=== PATIENT | female | born 1955 | race Caucasian/White ===

== ENCOUNTER 2023-02-09 11:46 | Emergency (ER) | payer MEDICARE, MEDICAID ==
[~2023-02-09] VITALS: Ht 160 cm; Wt 90.9 kg
[~2023-02-09 11:46] MED LIST: ADV50250 IH; ALBU8.5H4 IH; ASPI81TA52 PO; CELE-193 PO; ERGO500014 PO; FESO4TAB PO; FURO-150 PO; HYDR-4353 PO; INDLA60C; LANTUS SQ; LISI20TA28 PO; METF-900 PO; MORP-92 PO; MULT-1085 PO; POTA2TAB17 PO; POTA2TAB6 PO; PRAV80TA3 PO; PRED10TA PO; ROPI1TAB6 PO; SERT25TA PO
[2023-02-09 12:08] VITALS: BP 125/70
[2023-02-09] MEDS ORDERED: GUAI-647 PO ×2 (14:06→14:17)
[2023-02-09] MEDS ORDERED: AMOX-117 PO (14:33)
[2023-02-09] MEDS ORDERED: PRED20TA PO (14:33)
== END 2023-02-09 14:45 | disposition home or self-care (01) ==
LOC: ER 11:47
DX: R05.9 Cough, unspecified (principal); R09.81 Nasal congestion; I51.0 Cardiac septal defect, acquired; K21.9 Gastro-esophageal reflux disease without esophagitis; Z79.899 Other long term (current) drug therapy; Z79.82 Long term (current) use of aspirin; Z79.1 Long term (current) use of non-steroidal anti-inflammatories (NSAID); Z79.2 Long term (current) use of antibiotics
CPT/HCPCS: 99283

== ENCOUNTER 2024-02-17 17:18 | Emergency (ER) | payer MEDICARE, MEDICAID ==
[~2024-02-17] VITALS: Ht 160 cm; Wt 70.0 kg
[~2024-02-17 17:18] MED LIST changes: +ROPI1TAB47 PO; -ROPI1TAB6 PO
[2024-02-17] MEDS: ipratropium/albuterol 3ml nebule NEB ONE (18:33)
[2024-02-17 18:35] LABS: BASOPHILS # (AUTO) 0.1 X10'3 (0-0.2); BASOPHILS % (AUTO) 0.7 % (0-1); EOSINOPHILS # (AUTO) 0.3 X10'3 (0-0.9); HEMATOCRIT 34.5 % (35.0-45.0); HEMOGLOBIN 11.2 g/dl (12.0-16.0); LYMPHOCYTES # (AUTO) 1.1 X10'3 (1.1-4.8); LYMPHOCYTES % (AUTO) 12.4 % (21-51); MEAN CORPUSCULAR HEMOGLOBIN 25.1 PG (27.0-31.0); MEAN CORPUSCULAR HGB CONC 32.5 g/dL (33.0-36.5); MEAN PLATELET VOLUME 9.5 FL (7.4-10.4); MONOCYTES # (AUTO) 0.5 X10'3 (0-0.9); MONOCYTES % (AUTO) 5.5 % (2-12); NEUTROPHILS # (AUTO) 7.2 X10'3 (1.8-7.7); NEUTROPHILS % (AUTO) 78.4 % (42-75); PLATELET COUNT 190 X10'3 (140-440); RED BLOOD COUNT 4.48 X10'6 (4.20-5.60); RED CELL DISTRIBUTION WIDTH 16.2 % (11.5-14.5); WHITE BLOOD COUNT 9.2 X10'3 (4.5-11.0)
[2024-02-17 18:36] VITALS: PULSE 95; RESP 16; O2SAT 94
[2024-02-17 18:41] VITALS: PULSE 74; O2SAT 95
[2024-02-17] MEDS: methylPREDNISolone sod succ 125mg/2ml vial IV ONE (18:46)
[2024-02-17 18:47] LABS: ALBUMIN 3.2 G/DL (3.4-5.0); ANION GAP 8 (8-16); BLOOD UREA NITROGEN 13 MG/DL (7-18); CHLORIDE 94 MMOL/L (99-107); GLUCOSE 101 MG/DL (70-104); POTASSIUM 4.1 MMOL/L (3.5-5.1); PRO BRAIN NATRIURETIC PEPTIDE 283 PG/ML (0-125); SODIUM 130 MMOL/L (135-145); TOTAL CARBON DIOXIDE 27.7 MMOL/L (24-32); eCRCL 46 ML/MIN; eGFR 55 ML/MIN
[2024-02-17 18:52] LABS: MAGNESIUM 1.2 MG/DL (1.5-2.4)
[2024-02-17] MEDS ORDERED: PRED20TA PO (20:09)
[2024-02-17] MEDS ORDERED: CEPH250T PO (20:09)
[2024-02-17 20:31] VITALS: BP 140/73; PULSE 76; RESP 16; TEMP 98.5; O2SAT 92
== END 2024-02-17 20:25 | disposition home or self-care (01) ==
LOC: ER 17:19
DX: J40 Bronchitis, not specified as acute or chronic (principal); I50.9 Heart failure, unspecified; J44.9 Chronic obstructive pulmonary disease, unspecified; Z79.899 Other long term (current) drug therapy; Z79.82 Long term (current) use of aspirin; Z79.2 Long term (current) use of antibiotics
CPT/HCPCS: 36415; 71045; 80048; 83735; 83880; 84484; 85025; 93005; 94640; 96374; 99285; J2930; A4615

== ENCOUNTER 2024-03-16 19:25 | Emergency (ER) | payer MEDICARE, MEDICAID ==
[~2024-03-16] VITALS: Ht 162.6 cm; Wt 69.1 kg
[2024-03-16 19:43] LABS: BASOPHILS # (AUTO) 0.1 X10'3 (0-0.2); BASOPHILS % (AUTO) 0.8 % (0-1); EOSINOPHILS # (AUTO) 0.5 X10'3 (0-0.9); EOSINOPHILS % (AUTO) 4.9 % (0-6); HEMATOCRIT 36.9 % (35.0-45.0); LYMPHOCYTES # (AUTO) 1.3 X10'3 (1.1-4.8); LYMPHOCYTES % (AUTO) 13.9 % (21-51); MEAN CORPUSCULAR HEMOGLOBIN 25.3 PG (27.0-31.0); MEAN CORPUSCULAR HGB CONC 32.6 g/dL (33.0-36.5); MEAN CORPUSCULAR VOLUME 77.6 FL (78-98); MEAN PLATELET VOLUME 8.9 FL (7.4-10.4); MONOCYTES # (AUTO) 0.5 X10'3 (0-0.9); NEUTROPHILS # (AUTO) 7.3 X10'3 (1.8-7.7); NEUTROPHILS % (AUTO) 75.4 % (42-75); PLATELET COUNT 176 X10'3 (140-440); RED BLOOD COUNT 4.75 X10'6 (4.20-5.60); RED CELL DISTRIBUTION WIDTH 16.9 % (11.5-14.5); WHITE BLOOD COUNT 9.7 X10'3 (4.5-11.0)
[2024-03-16] MEDS ORDERED: DEC4T PO (19:44)
[2024-03-16] MEDS: methylPREDNISolone sod succ 125mg/2ml vial IV ONE (19:47)
[2024-03-16] MEDS: normal saline 1000ML IV soln IVB ONE (19:47)
[2024-03-16 19:58] VITALS: PULSE 78; RESP 16; O2SAT 97
[2024-03-16] MEDS: albuterol 2.5 MG/3 ML nebule NEB ONE (19:58)
[2024-03-16 20:00] LABS: ALBUMIN 3.4 G/DL (3.4-5.0); ANION GAP 9 (8-16); BLOOD UREA NITROGEN 10 MG/DL (7-18); BUN/CREATININE RATIO 9.5 (10.0-20.0); CALCIUM 8.9 MG/DL (8.5-10.1); CHLORIDE 97 MMOL/L (99-107); CREATININE 1.05 MG/DL (0.40-0.90); GLUCOSE 116 MG/DL (70-104); POTASSIUM 3.5 MMOL/L (3.5-5.1); PRO BRAIN NATRIURETIC PEPTIDE 158 PG/ML (0-125); SODIUM 133 MMOL/L (135-145); eCRCL 46 ML/MIN; eGFR 52 ML/MIN
[2024-03-16 20:08] VITALS: PULSE 78; RESP 16; O2SAT 98
[2024-03-16 21:22] VITALS: BP 117/70; PULSE 87; RESP 20; TEMP 98.3; O2SAT 95
== END 2024-03-16 21:15 | disposition home or self-care (01) ==
LOC: ER 19:26
DX: J44.1 Chronic obstructive pulmonary disease with (acute) exacerbation (principal); E87.1 Hypo-osmolality and hyponatremia; R73.9 Hyperglycemia, unspecified; N18.9 Chronic kidney disease, unspecified; J98.01 Acute bronchospasm; I50.9 Heart failure, unspecified; Z79.82 Long term (current) use of aspirin; Z79.899 Other long term (current) drug therapy; Z79.84 Long term (current) use of oral hypoglycemic drugs
CPT/HCPCS: 36415; 71045; 80048; 83880; 84484; 85025; 93005; 94640; 96374; 99285; J2919; J7030; 94760

== ENCOUNTER 2024-03-20 18:02 | Emergency (ER) | payer MEDICARE, MEDICAID ==
[~2024-03-20] VITALS: Ht 160 cm; Wt 67.3 kg
[~2024-03-20 18:02] MED LIST changes: +DEC4T PO
[2024-03-20 18:08] VITALS: TEMP 98.8
[2024-03-20 20:14] VITALS: BP 135/74; PULSE 69; O2SAT 98
[2024-03-20] MEDS ORDERED: HYDR-3965 PO (21:23)
[2024-03-20 21:41] VITALS: RESP 18
[2024-03-20] MEDS: HYDROcodone/acetaminophen 5mg/325mg tablet PO ONE (21:41)
== END 2024-03-20 21:40 | disposition home or self-care (01) ==
LOC: ER 18:02
DX: S51.811A Laceration without foreign body of right forearm, initial encounter (principal); S80.02XA Contusion of left knee, initial encounter; S80.01XA Contusion of right knee, initial encounter; I50.9 Heart failure, unspecified; J44.9 Chronic obstructive pulmonary disease, unspecified; W01.0XXA Fall on same level from slipping, tripping and stumbling without subsequent striking against object, initial encounter; Y93.89 Activity, other specified; Y92.89 Other specified places as the place of occurrence of the external cause; Y99.8 Other external cause status
CPT/HCPCS: 73564; 99284